=== PATIENT | female | born 2000 | race Caucasian/White ===

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

== ENCOUNTER 2022-01-27 12:17 | Emergency (ER) | payer OTHER, SELFPAY ==
[2022-01-27 12:25] VITALS: BP 105/65; PULSE 93; RESP 16; TEMP 36.9; O2SAT 100
--- NOTE | 2022-01-27 12:39 | ED.URI ---
HPI - URI/Sore Throat General Chief Complaint: Upper Respiratory Infection Stated Complaint: uri Time Seen by Provider: 01/27/22 12:25 Source: patient Mode of arrival: ambulatory Limitations: no limitations History of Present Illness HPI Narrative: Annika is a 21-year-old female patient presenting to the clinic today with complaints of cough, nasal congestion, body aches, feeling feverish, and chills. She reports that she has had the symptoms for 2-3 days. States that she has had exposure to RSV and is concerned that she may have RC. MD elicited complaint: sore throat and nasal congestion Related Data Home Medications Medication Instructions Recorded Confirmed aripiprazole 5 mg tablet 5 mg PO DAILY 01/27/22 01/27/22 buspirone 10 mg tablet 10 mg PO DAILY 01/27/22 01/27/22 Allergies Allergy/AdvReac Type Severity Reaction Status Date / Time No Known Allergies Allergy Verified 01/27/22 12:38 Review of Systems Review of Systems: Pertinent positives per HPI. Patient denies any rash, headache, visual changes, dizziness,shortness of breath, chest pain, palpitations, nausea, vomiting, diarrhea, constipation, abdominal pain, or any urinary issues. [facility] Past Medical History Medical History Depression Social History Social History Smoking status: Never smoker Alcohol intake: never Substance use: never Gender identity (if verbalized by the patient): Female Comments At the time of my signature, I reviewed and agree with the nursing past medical, surgical, social, and family history. There is no relevant family history pertinent to the patient complaint. Exam Narrative: General: Well-developed, well nourished, in no apparent distress Head: Normocephalic, atraumatic Eyes: Pupils equally round and reactive to light bilaterally, EOM intact, sclera and conjunctive clear, no discharge, lids normal Ears: TMs intact and dull, ear canals clear, no drainage, grossly hearing normal. Nose: Nares patent, clear nasal discharge, no inflammation, no sinus tenderness. Mouth: Oral pharynx without lesions or masses, good dentition, MMM. Postnasal drip Neck: Supple, trachea midline, no enlargement of anterior or posterior cervical nodes, no thyroid masses or goiter palpable. Cardio: Regular rate and rhythm, s1 and s2 normal, no murmur appreciated. Resp: Clear to auscultation bilaterally, no rhonchi, rales, wheezing or rubs Course Course Emergency Course: Portions of this record may have been created with voice recognition software. Level of Care: Express Care Visit Vital Signs Vital signs: Vital Signs Temperature 36.9 C 01/27/22 12:25 Pulse Rate 93 01/27/22 12:25 Respiratory Rate 16 01/27/22 12:25 Blood Pressure 105/65 01/27/22 12:25 Pulse Oximetry 100 01/27/22 12:25 Oxygen Delivery Room Air 01/27/22 12:25 Temperature 36.9 C 01/27/22 12:25 Pulse Rate 93 01/27/22 12:25 Respiratory Rate 16 01/27/22 12:25 Blood Pressure 105/65 01/27/22 12:25 Pulse Oximetry 100 01/27/22 12:25 Oxygen Delivery Room Air 01/27/22 12:25 Vital signs reviewed MDM - URI/Sore Throat MDM Narrative Medical decision making narrative: At the time of visit patient is resting comfortably on exam table. Influenza test was negative in the clinic today. I suspect the patient has an upper respiratory infection, eustachian tube dysfunction, otalgia, and a viral syndrome. I will send in a prescription for some prednisone to help with eustachian tube dysfunction and that and nasal congestion. Supportive measures were discussed with the patient she voiced understanding of discharge instructions and agrees to treatment plan. Differential Diagnosis Differential diagnosis: Likely upper respiratory infection, otitis media, sinusitis, viral infection, bronchitis, influenza, pharyngitis and
== END 2022-01-27 12:48 | disposition home or self-care (01) ==
PROVIDERS: Emergency Provider Nurse Practitioner Family
DX: B34.9 Viral infection, unspecified (principal); J06.9 Acute upper respiratory infection, unspecified; H69.81 Other specified disorders of Eustachian tube, right ear; H92.01 Otalgia, right ear; F32.A Depression, unspecified
CPT/HCPCS: 99213; G0463

== ENCOUNTER 2022-02-17 12:22 | Emergency (ER) | payer OTHER, SELFPAY ==
[2022-02-17 12:32] VITALS: BP 113/67; PULSE 85; RESP 18; TEMP 37.4; O2SAT 100
--- NOTE | 2022-02-17 12:44 | ED.SKABFB ---
HPI - Skin/Abscess/Foreign Bdy General Chief complaint: Skin/Abscess/Foreign Body Stated complaint: Right Hand Pain Time Seen by Provider: 02/17/22 12:40 Source: patient and RN notes reviewed Mode of arrival: ambulatory Limitations: no limitations History of Present Illness HPI narrative: 21-year-old female presents concern for was splinter under her fingernail. Reports she was picking up her favorite off of 0 would some floor and scraped her fingernail on the wood. Reports she was able to remove some of the splinter, she cut her finger nail down but there still which she cannot take out. complaint: foreign body Related Data Home Medications Medication Instructions Recorded Confirmed aripiprazole 5 mg tablet 5 mg PO DAILY 01/27/22 02/17/22 buspirone 10 mg tablet 10 mg PO DAILY 01/27/22 02/17/22 levonorgestrel 0.15 mg-ethinyl 1 tablet PO DAILY 02/17/22 02/17/22 estradiol 0.03 mg tablet (Altavera (28)) Allergies Allergy/AdvReac Type Severity Reaction Status Date / Time No Known Allergies Allergy Verified 02/17/22 12:25 Review of Systems Review of Systems: CONSTITUTIONAL: Denies malaise, chills, sweats, or fever. SKIN: Reports wood splinter under the nail of the 3rd digit of the right hand surrounding erythema, edema, drainage MUSCULOSKELETAL: Denies muscle skeletal pain All systems reviewed & are unremarkable except as noted in HPI and below PMFSH Past Medical History Medical History Depression Social History Social History Smoking status: Never smoker Alcohol intake: never Substance use: never Gender identity (if verbalized by the patient): Female Comments At time of signature, agree with nursing past medical, surgical, social and family history. There is no relevant family history pertinent to the presenting complaint Exam Narrative: GENERAL: Well-appearing, well-nourished, and in no acute distress. HEAD: Normocephalic, atraumatic. EYES: PERRLA, conjunctivae clear ENT: Mucous membranes moist. NECK: Supple. No lymphadenopathy CHEST: Clear to auscultation. No respiratory distress. HEART: Regular rate and rhythm. SKIN: Warm, dry. Dark colored foreign body noted under the nail bed of the 3rd digit of the right hand without erythema, induration or drainage NEURO: Alert and oriented x3. PSYCH: Normal mood and affect Course Course Emergency Course: Patient is aware of diagnosis, understands and agrees to treatment plan. Anticipatory guidance given. Patient agrees to follow-up as directed and is aware of reasons to seek care at the emergency department. Portions of this record may have been created with voice recognition software Level of Care: Express Care Visit Vital Signs Vital signs: Vital Signs Temperature 99.4 F 02/17/22 12:32 Pulse Rate 85 02/17/22 12:32 Respiratory Rate 18 02/17/22 12:32 Blood Pressure 113/67 02/17/22 12:32 Pulse Oximetry 100 02/17/22 12:32 Oxygen Delivery Room Air 02/17/22 12:32 Temperature 99.4 F 02/17/22 12:32 Pulse Rate 85 02/17/22 12:32 Respiratory Rate 18 02/17/22 12:32 Blood Pressure 113/67 02/17/22 12:32 Pulse Oximetry 100 02/17/22 12:32 Oxygen Delivery Room Air 02/17/22 12:32 Reviewed. Procedures Foreign Body Removal Foreign Body #1: Foreign Body Removal Date: 02/17/22 Foreign Body Removal Time: 12:47 Time Out Performed: yes Site: right Description of foreign body: other (Wood) Sedation/Analgesia: none Technique: removal with forceps and incision made to facilitate removal (wedge of fingernail cut away to facilitate removal) Confirmed by:: direct visualization Complications: none Neurovascular: no change from pre-procedure Nerve Block Nerve Block 1: Nerve block date: 02/17/22 Nerve block time: 12:47
== END 2022-02-17 13:08 | disposition home or self-care (01) ==
PROVIDERS: Emergency Provider Nurse Practitioner
DX: S61.242A Puncture wound with foreign body of right middle finger without damage to nail, initial encounter (principal); W45.8XXA Other foreign body or object entering through skin, initial encounter; F32.A Depression, unspecified
CPT/HCPCS: 10120; 99212; G0463

== ENCOUNTER 2022-04-09 19:03 | Emergency (ER) | payer OTHER, SELFPAY ==
--- NOTE | ~2022-04-09 | XR_ITS ---
EXAM: XR thoracic spine 2V DATE: 04/09/2022 19:33 HISTORY: UPPER BACK PAIN, NO INJURY . COMPARISON: 08/31/2018. FINDINGS: Vertebral body alignment intact. Mild thoracic scoliosis. Vertebral body heights preserved . No disc space narrowing. No traumatic malalignment or fracture. Visualized lung parenchyma is clear . IMPRESSION: No acute fracture or traumatic malalignment detected in the thoracic spine. Reviewed, dictated and finalized at [facility] [employer] IMPRESSION: No acute fracture or traumatic malalignment detected in the thoraci c spine.
[2022-04-09 19:11] VITALS: BP 128/58; PULSE 99; RESP 16; TEMP 37.4; O2SAT 100
--- NOTE | 2022-04-09 19:48 | ED.GENADULT ---
HPI - General Adult General Chief complaint: Back Pain/Injury Stated complaint: upper back pain Source: patient Mode of arrival: ambulatory Limitations: no limitations History of Present Illness HPI narrative: Patient presents for evaluation Of back pain since yesterday. She woke from sleep with her symptoms. She thought that her symptoms were related to position in which she slept. She now reports a constant dull ache in the affected area. She states pain does radiate from her thoracic spine about bilaterally. Certain movements make her pain worse. 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 She did take some Tylenol and ibuprofen yesterday which seemed to help. No history of similar symptoms. Pain also does radiate up into her neck. Reports a frontal headache that she describes as a migraine. No fevers or chills. No nuchal rigidity. Related Data Home Medications Medication Instructions Recorded Confirmed aripiprazole 5 mg tablet 5 mg PO DAILY 01/27/22 02/17/22 buspirone 10 mg tablet 10 mg PO DAILY 01/27/22 02/17/22 levonorgestrel 0.15 mg-ethinyl 1 tablet PO DAILY 02/17/22 02/17/22 estradiol 0.03 mg tablet (Altavera (28)) duloxetine 60 mg capsule,delayed 60 mg PO DAILY 04/09/22 04/09/22 release Allergies Allergy/AdvReac Type Severity Reaction Status Date / Time No Known Allergies Allergy Verified 04/09/22 19:45 Review of Systems Review of Systems: CONSTITUTIONAL: Denies fever, chills, or sweats. EYES: Denies visual changes, redness, or discharge. ENT: Denies rhinorrhea, congestion, sore throat, or otalgia. CARDIOVASCULAR: Denies chest pain, palpitations, or edema. RESPIRATORY: Denies cough or dyspnea. GASTROINTESTINAL: Denies abdominal pain, nausea, vomiting, or diarrhea. GENITOURINARY: Denies dysuria or hematuria. SKIN: Denies rash or itching. MUSCULOSKELETAL: reports back pain with radiation into the neck NEUROLOGIC: Reports headache. Denies numbness, dizziness, or weakness. PSYCHIATRIC: Denies anxiety or depression. [facility] Past Medical History Medical History Depression Surgical History Surgical History No pertinent past surgical history Family History Family History (Updated 04/09/22 @ 20:00 by Peng Murphy, [facility], ) Mother Family history non-contributory Social History Social History Smoking status: Never smoker Alcohol intake: never Substance use: never Gender identity (if verbalized by the patient): Female Exam Narrative: GENERAL: Well-appearing, well-nourished, and in no acute distress. HEAD: Normocephalic, atraumatic. EYES: PERRLA and EOMI. ENT: Nares clear, no rhinorrhea or epistaxis. Mucous membranes moist. Oropharynx without tonsillar hypertrophy exudate or other lesions. Bilateral TMs pearly lazcano nonbulging NECK: Supple. No adenopathy or masses. No carotid bruits or JVD. No tenderness in midline or paraspinous muscles of the cervical spine. CHEST: Clear to auscultation. No respiratory distress. No wheezes rales or rhonchi HEART: Regular rate and rhythm. No murmur heard. Normal peripheral pulses. ABDOMEN: Soft, nontender, nondistended, normal active bowel sounds. EXTREMITIES: Normal range of motion. No edema. BACK: no tenderness in midline or paraspinous muscles of the thoracic spine. SKIN: Warm, dry, no rash. NEURO: No focal deficits. Alert and oriented x3. negative Brudzinski sign. Negative Kernig sign. PSYCH: Normal mood and affect. Course Course Emergency Course: This is a 21-year-old female who presented for evaluation of back pain. She has some scoliosis noted under thoracic spine film. Her exam is consistent with muscle spasm. Will discharge with ibuprofen and Flexeril. Increase hydr
== END 2022-04-09 19:51 | disposition home or self-care (01) ==
PROVIDERS: Emergency Provider Nurse Practitioner
DX: M41.9 Scoliosis, unspecified (principal); M62.830 Muscle spasm of back; F32.A Depression, unspecified
CPT/HCPCS: 72070; 99213; G0463

== ENCOUNTER 2022-12-24 15:11 | Emergency (ER) | payer OTHER, SELFPAY ==
--- NOTE | 2022-12-24 15:19 | ED.BACK ---
HPI - Back Pain/Injury General Chief Complaint: Back Pain/Injury Stated Complaint: Middle/Lower Back Pain Source: patient and RN notes reviewed History of Present Illness HPI Narrative: 22 yo F presents to urgent care with complaints of right back pain x 2 weeks. Pt states she first noticed this pain when she was attempting to pop her back by rotating her torso to the right while sitting in a chair. Pt states every since then, she is unable to rotate her torso very far on the right due to the pain. Reports increased pain when she takes a deep breath or cough. Denies any fevers, chills, chest pain, SOB, vomiting, numbness, tingling, dysuria, saddle anesthesia, or incontinence of urine or stool. Related Data Home Medications Medication Instructions Recorded Confirmed aripiprazole 5 mg tablet 5 mg PO DAILY 01/27/22 12/24/22 buspirone 10 mg tablet 10 mg PO DAILY 01/27/22 12/24/22 levonorgestrel 0.15 mg-ethinyl 1 tablet PO DAILY 02/17/22 12/24/22 estradiol 0.03 mg tablet (Altavera (28)) duloxetine 60 mg capsule,delayed 60 mg PO DAILY 04/09/22 12/24/22 release Allergies Allergy/AdvReac Type Severity Reaction Status Date / Time No Known Allergies Allergy Verified 12/24/22 15:12 Review of Systems Review of Systems: CONSTITUTIONAL: Denies fever, chills, or sweats. EYES: Denies visual changes, redness, or discharge. ENT: Denies otalgia and sore throat CARDIOVASCULAR: Denies chest pain, palpitations, or edema. RESPIRATORY: Denies cough or dyspnea. GASTROINTESTINAL: Denies abdominal pain, nausea, vomiting, or diarrhea. GENITOURINARY: Denies dysuria or hematuria. SKIN: Denies rash or itching. MUSCULOSKELETAL: right back pain NEUROLOGIC: Denies headache, numbness, or weakness. Pertinent positives per HPI. [facility] Past Medical History Medical History Depression Surgical History Surgical History No pertinent past surgical history Family History Family History (Updated 04/09/22 @ 20:00 by Peng Murphy, [employer], ) Mother Family history non-contributory Social History Social History Smoking status: Never smoker Alcohol intake: never Substance use: never Gender identity (if verbalized by the patient): Female Comments At the time of my signature, I reviewed and agree with the nursing past medical, surgical, social, and family history. There is no relevant family history pertinent to the patient complaint. Exam Narrative: GENERAL: This is a well-nourished, well-developed patient, in no apparent distress. HEAD: normocephalic, atraumatic. EYES: Sclera clear/white. Vision is grossly intact. EARS: External ears normal, auditory canals clear and without drainage. Hearing grossly intact. NOSE: External nose normal with no obvious nasal discharge, nares without redness, no rhinorrhea. CARDIOVASCULAR: Regular rate and rhythm without murmurs, gallops, or rubs. RESPIRATORY: Clear to auscultation. Breath sounds equal bilaterally. No wheezes, rales, or rhonchi. GASTROINTESTINAL: Abdomen soft, non-tender, nondistended. Bowel sounds are active. No hepato-splenomegaly, or palpable masses. No guarding. SKIN: warm, intact with no suspicious lesions or rash, good texture and turgor. NEURO: awake, alert, and oriented to person, place and time. There were no obvious focal neurologic abnormalities. EXTREMITIES: No clubbing, cyanosis, or edema. No joint tenderness, effusion, or edema noted. BACK: mild tenderness to right thoracic back muscles. limited ROM with rotating torso. Course Course Level of Care: Express Care Visit Vital Signs Vital signs: Vital Signs Temperature 99.1 F 12/24/22 15:20 Pulse Rate 96 12/24/22 15:20 Respiratory Rate 16 12/24/22 15:20 Blood Pressure 125/72 12/24/22 15:20 Pulse Oximetry
[2022-12-24 15:20] VITALS: BP 125/72; PULSE 96; RESP 16; TEMP 37.3; O2SAT 100
== END 2022-12-24 15:34 | disposition home or self-care (01) ==
PROVIDERS: Emergency Provider Nurse Practitioner Family
DX: S39.012A Strain of muscle, fascia and tendon of lower back, initial encounter (principal); X50.0XXA Overexertion from strenuous movement or load, initial encounter; F32.A Depression, unspecified
CPT/HCPCS: 99213; G0463

== ENCOUNTER 2023-02-05 15:57 | Emergency (ER) | payer OTHER, SELFPAY ==
[2023-02-05 16:13] VITALS: BP 120/62; PULSE 112; RESP 16; TEMP 37.7; O2SAT 99
[2023-02-05] MEDS: ONDANSETRON HCL ODT 4 MG TABLET PO (16:40)
--- NOTE | 2023-02-05 17:35 | ED.GENADULT ---
HPI - General Adult General Chief complaint: Nausea/Vomiting/Diarrhea Stated complaint: vomiting,diarrhea,stomach pains Source: patient Mode of arrival: ambulatory Limitations: no limitations History of Present Illness HPI narrative: Patient presents for evaluation of nausea, vomiting, and diarrhea. Symptom onset this morning. she has some associated abdominal cramping. No fever, chills, or hematemesis. She had some respiratory symptoms last week that have since resolved. No recent sick contacts to her knowledge. She does not smoke. No new foods. No recent antibiotics. Related Data Home Medications Medication Instructions Recorded Confirmed aripiprazole 5 mg tablet 5 mg PO DAILY 01/27/22 12/24/22 buspirone 10 mg tablet 10 mg PO DAILY 01/27/22 12/24/22 levonorgestrel 0.15 mg-ethinyl 1 tablet PO DAILY 02/17/22 12/24/22 estradiol 0.03 mg tablet (Altavera (28)) duloxetine 60 mg capsule,delayed 60 mg PO DAILY 04/09/22 12/24/22 release Allergies Allergy/AdvReac Type Severity Reaction Status Date / Time No Known Allergies Allergy Verified 02/05/23 16:15 Review of Systems Review of Systems: CONSTITUTIONAL: Denies fever, chills, or sweats. EYES: Denies visual changes, redness, or discharge. ENT: Denies rhinorrhea, congestion, sore throat, or otalgia. CARDIOVASCULAR: Denies chest pain, palpitations, or edema. RESPIRATORY: Denies cough or dyspnea. GASTROINTESTINAL: Reports abdominal cramping, nausea, vomiting and diarrhea. GENITOURINARY: Denies dysuria or hematuria. SKIN: Denies rash or itching. MUSCULOSKELETAL: Denies back pain, joint pain, or myalgia. NEUROLOGIC: Denies headache, numbness, dizziness, or weakness. PSYCHIATRIC: Denies anxiety or depression. [facility] Past Medical History Medical History Depression Diarrhea Surgical History Surgical History No pertinent past surgical history Family History Family History Mother Family history non-contributory Social History Social History (Updated 02/05/23 @ 17:38 by Peng Murphy, [facility], ) Smoking status: Never smoker Alcohol intake: never Substance use: never Living arrangements: with family Gender identity (if verbalized by the patient): Female Spiritual care concerns: No Exam Narrative: GENERAL: Well-appearing, well-nourished, and in no acute distress. HEAD: Normocephalic, atraumatic. EYES: PERRLA and EOMI. ENT: Nares clear, no rhinorrhea or epistaxis. Mucous membranes moist. Oropharynx without tonsillar hypertrophy exudate or other lesions. Bilateral TMs pearly lazcano nonbulging NECK: Supple. No adenopathy or masses. No carotid bruits or JVD CHEST: Clear to auscultation. No respiratory distress. No wheezes rales or rhonchi HEART: Regular rate and rhythm. No murmur heard. Normal peripheral pulses. ABDOMEN: Soft, nontender, nondistended, normal active bowel sounds. EXTREMITIES: Normal range of motion. No edema. SKIN: Warm, dry, no rash. NEURO: No focal deficits. Alert and oriented x3. PSYCH: Normal mood and affect. Course Course Emergency Course: This is a 22-year-old female who presented for evaluation of nausea, vomiting, diarrhea. Given zofran for nausea with improvement in her symptoms thereafter. Influenza A positive. Will tx with tamiflu, zofran and lomotil. increase hydration. Follow up with primary provider. Go to the ER for worsening symptoms. Patient in agreement with of care. Level of Care: Express Care Visit Vital Signs Vital signs: Vital Signs Temperature 37.7 C H 02/05/23 16:13 Pulse Rate 112 H 02/05/23 16:13 Respiratory Rate 16 02/05/23 16:13 Blood Pressure 120/62 02/05/23 16:13 Pulse Oximetry 99 02/05/23 16:13 Oxygen Delivery Room Air 02/05/23 16:13 Temperature 37.7 C H 01/18
== END 2023-02-05 17:36 | disposition home or self-care (01) ==
PROVIDERS: Emergency Provider Nurse Practitioner
DX: J10.1 Influenza due to other identified influenza virus with other respiratory manifestations (principal); F32.A Depression, unspecified
CPT/HCPCS: 87804; 99213; A9270; G0463

== ENCOUNTER 2023-02-21 09:32 | Emergency (ER) | payer OTHER, SELFPAY ==
--- NOTE | ~2023-02-21 | XR_ITS ---
EXAMINATION: XR chest 1V portable 02/21/2023 11:47 INDICATION: Shortness of breath. Cough. PROCEDURE: AP portable chest COMPARISON: No prior studies for comparison. FINDINGS: The lungs are clear. The cardiomediastinal silhouette is within normal limits. There are no pleural effusions. There is no pneumothorax suspected. IMPRESSION: 1: NO ACUTE CARDIOPULMONARY DISEASE. Reviewed, dictated and finalized at location L. 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
--- NOTE | 2023-02-21 09:34 | ECG_ITS ---
Measurements Intervals [place] Rate: 106 P: 60 [place]: 130 QRS: 95 QRSD: 87 T: 17 QT: 329 QTc: 438 Interpretive Statements SINUS TACHYCARDIA BORDERLINE RIGHT AXIS DEVIATION [QRS AXIS > 90] ABNORMAL RHYTHM ECG NO PREVIOUS ECG AVAILABLE FOR COMPARISON Electronically Signed On 02-21-2023 13:34:19 [employer] FRAME [employer] by Mikayla Sultana M.D.
[2023-02-21 10:04] VITALS: BP 126/72; PULSE 108; RESP 17; TEMP 36.9; O2SAT 100
--- NOTE | 2023-02-21 11:44 | ED.GENADULT ---
HPI - General Adult General Chief complaint: Shortness of Breath/Dyspnea Stated complaint: UPPER RESP COUGHING Time Seen by Provider: 02/21/23 11:04 History of Present Illness HPI narrative: 22-year-old female presenting to the emergency department for evaluation of sore throat cough congestion and intermittent chest pain. Patient reports approximately 2 weeks ago she was diagnosed with influenza a and reports over the last 5 days she has had worsening sore throat nasal congestion and chest pain. Related Data Home Medications Medication Instructions Recorded Confirmed aripiprazole 5 mg tablet 5 mg PO DAILY 01/27/22 12/24/22 buspirone 10 mg tablet 10 mg PO DAILY 01/27/22 12/24/22 levonorgestrel 0.15 mg-ethinyl 1 tablet PO DAILY 02/17/22 12/24/22 estradiol 0.03 mg tablet (Altavera (28)) duloxetine 60 mg capsule,delayed 60 mg PO DAILY 04/09/22 12/24/22 release Allergies Allergy/AdvReac Type Severity Reaction Status Date / Time No Known Allergies Allergy Verified 02/21/23 11:45 Review of Systems Review of Systems: All systems reviewed & are unremarkable except as noted in HPI and below PMFSH Past Medical History Medical History Depression Diarrhea Surgical History Surgical History No pertinent past surgical history Family History Family History Mother Family history non-contributory Social History Social History (Updated 02/05/23 @ 17:38 by ROHIT Aquino, ) Smoking status: Never smoker Alcohol intake: never Substance use: never Living arrangements: with family Gender identity (if verbalized by the patient): Female Spiritual care concerns: No Exam Narrative: APPEARANCE: Well appearing, no pain, no distress, well-nourished. HEAD: normocephalic, atraumatic. EYES: PERRLA/EOMI, conjunctivae clear. NOSE: Normal no drainage EARS:TMS clear with good light reflex. THROAT: Pharynx clear, no exudate. NECK: Supple. No adenopathy, no masses. RESPIRATORY: Airway patent, respirations nonlabored. Clear to auscultation bilaterally, no rales, rhonchi, wheezing. CARDIOVASCULAR: Regular rate and rhythm without murmurs rubs or gallops. ABDOMINAL: Soft, nontender, nondistended, normal bowel sounds MUSCULOSKELETAL: Moves all extremities. Strength/ROM intact, No edema, No calf tenderness. NEURO: Alert. Cranial nerves II through XII intact. grossly intact SKIN: Warm, dry. Normal Color Course Vital Signs Vital signs: Vital Signs Temperature 98.4 F 02/21/23 10:04 Pulse Rate 108 H 02/21/23 10:04 Respiratory Rate 17 02/21/23 10:04 Blood Pressure 126/72 02/21/23 10:04 Pulse Oximetry 100 02/21/23 10:04 Oxygen Delivery Room Air 02/21/23 10:04 Temperature 98.4 F 02/21/23 10:04 Pulse Rate 86 02/21/23 13:02 Respiratory Rate 18 02/21/23 13:02 Blood Pressure 120/70 02/21/23 13:02 Pulse Oximetry 99 02/21/23 13:02 Oxygen Delivery Room Air 02/21/23 12:08 Medical Decision Making Differential Diagnosis Differential Diagnosis: influenza a, COVID, pneumonia Vital Signs Vital Signs: Vital Signs Temperature 98.4 F 02/21/23 10:04 Pulse Rate 108 H 02/21/23 10:04 Respiratory Rate 17 02/21/23 10:04 Blood Pressure 126/72 02/21/23 10:04 Pulse Oximetry 100 02/21/23 10:04 Oxygen Delivery Room Air 02/21/23 10:04 Temperature 98.4 F 02/21/23 10:04 Pulse Rate 86 02/21/23 13:02 Respiratory Rate 18 02/21/23 13:02 Blood Pressure 120/70 02/21/23 13:02 Pulse Oximetry 99 02/21/23 13:02 Oxygen Delivery Room Air 02/21/23 12:08 Lab Data Lab results reviewed: Yes I reviewed the patient's lab results. Labs: Lab Results 02/21/23 02/21/23 Range/Units 11:31 11:57 Influenza A (RT-PCR) Negative (Negative) Influenza B
[2023-02-21] MEDS: ONDANSETRON HCL ODT 4 MG TABLET PO (11:46)
[2023-02-21 12:14] LABS: Influenza A QL RT-PCR Negative (Negative); Influenza B QL RT-PCR Negative (Negative); RSV RNA, RT-PCR Negative (Negative); SARS-CoV-2 RNA PCR Negative (Negative)
[2023-02-21 12:35] LABS: Strep Group A RT-PCR NOT DETECTED (Negative)
[2023-02-21 13:02] VITALS: BP 120/70; PULSE 86; RESP 18; O2SAT 99
== END 2023-02-21 13:06 | disposition home or self-care (01) ==
PROVIDERS: Emergency Provider Emergency Medicine
DX: J18.9 Pneumonia, unspecified organism (principal); Z20.822 Contact with and (suspected) exposure to COVID-19; F32.A Depression, unspecified
CPT/HCPCS: 71045; 87637; 87651; 93005; 99283; A9270

== ENCOUNTER 2023-06-07 15:43 | Emergency (ER) | payer OTHER, SELFPAY ==
[2023-06-07] VITALS (12 sets, daily range): BP systolic 113–151; BP diastolic 73–85; PULSE 84–157; RESP 9–22; TEMP 36.6; O2SAT 100
--- NOTE | ~2023-06-07 | XR_ITS ---
XR chest 1V portable DATE: 06/07/2023 16:08 INDICATION: Chest pain, tachycardia TECHNIQUE: Portable upright AP chest on 06/07/19992013 1602 hours COMPARISON: 02/21/2023 portable AP chest FINDINGS: Normal heart size. No hilar or mediastinal enlargement. No pulmonary infiltrate or consolid ation, pleural effusion or pulmonary vascular congestion or pneumothorax is detected. Included skelet al structures are unremarkable. IMPRESSION: No active cardiopulmonary disease Reviewed, dictated and finalized at location B.
--- NOTE | 2023-06-07 15:50 | ECG_ITS ---
Measurements Intervals [place] Rate: 161 P: 56 [place]: 106 QRS: 94 QRSD: 89 T: 43 QT: 296 QTc: 485 Interpretive Statements SINUS TACHYCARDIA WITH SHORT [place] INTERVAL RIGHT AXIS DEVIATION MINIMAL Q WAVES- INFERIOR LEADS NONSPECIFIC ST & T-WAVE ABNORMALITY- ANT/INF LEADS ABNORMAL ECG COMPARED TO ECG 02/21/2023 09:40:21 SINUS TACHYCARDIA NOW PRESENT Electronically Signed On 06-07-2023 16:04:14 CDT by Aleksandr Lopez D.O.
[2023-06-07 16:03] LABS: Basophils Absolute Auto 0.1 K/mm3 (0.0-0.1); Basophils Percent Auto 0.7 % (0.2-1.2); Eosinophils Absolute Auto 0.1 K/mm3 (0-0.3); Eosinophils Percent Auto 1.7 % (0-4.4); Hematocrit 39.1 % (37.0-47.0); Immature Granulocyte Absolute 0.01 K/mm3 (0.00-0.031); Immature Granulocyte Percent A 0.1 % (0-0.5); Lymphocytes Absolute Auto 2.85 K/mm3 (0.9-3.2); Lymphocytes Percent Auto 35.3 % (18.3-44.2); Mean Corpuscular HGB Conc 33.2 g/dl (32-36); Mean Corpuscular Volume 90.1 fl (80-100); Mean Platelet Volume 9.9 fl (7.4-10.4); Monocytes Absolute Auto 0.6 K/mm3 (0.1-0.6); Monocytes Percent Auto 7.2 % (2.6-8.5); Neutrophils Absolute Auto 4.4 K/mm3 (1.3-6.7); Platelet Count Result 290 k/mm3 (150-375); Red Blood Count 4.34 M/mm3 (4.2-5.4); Red Cell Distribution Width 13.1 % (11.5-14.5); White Blood Count 8.1 K/mm3 (4.5-10.0)
[2023-06-07] MEDS: SODIUM CHLORIDE 0.9% IV 1,000 ML 1000 ML (16:05)
--- NOTE | 2023-06-07 16:05 | ED.ARRPALP ---
HPI - Arrhythmia/Palpitations General Chief Complaint: Arrhythmia/Palpitations Stated Complaint: heart racing Time Seen by Provider: 06/07/23 15:54 History of Present Illness HPI narrative: 22-year-old female presenting to the emergency department for evaluation of rapid heart rate. Patient states at approximately 10:00 a.m. this morning she had onset rapid heart rate. Patient states she does have intermittent rapid heart rate but has no prior diagnosis. 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 Related Data Home Medications Medication Instructions Recorded Confirmed aripiprazole 5 mg tablet 5 mg PO DAILY 01/27/22 12/24/22 buspirone 10 mg tablet 10 mg PO DAILY 01/27/22 12/24/22 levonorgestrel 0.15 mg-ethinyl 1 tablet PO DAILY 02/17/22 12/24/22 estradiol 0.03 mg tablet (Altavera (28)) duloxetine 60 mg capsule,delayed 60 mg PO DAILY 04/09/22 12/24/22 release Allergies Allergy/AdvReac Type Severity Reaction Status Date / Time No Known Allergies Allergy Verified 06/07/23 16:16 Review of Systems Review of Systems: All systems reviewed & are unremarkable except as noted in HPI and below PMFSH Past Medical History Medical History Depression Diarrhea Surgical History Surgical History No pertinent past surgical history Family History Family History Mother Family history non-contributory Social History Social History (Updated 02/05/23 @ 17:38 by ROHIT Aquino, ) Smoking status: Never smoker Alcohol intake: never Substance use: never Living arrangements: with family Gender identity (if verbalized by the patient): Female Spiritual care concerns: No Exam Narrative: APPEARANCE: Well appearing, no pain, no distress, well-nourished. HEAD: normocephalic, atraumatic. EYES: PERRLA/EOMI, conjunctivae clear. NOSE: Normal no drainage EARS:TMS clear with good light reflex. THROAT: Pharynx clear, no exudate. NECK: Supple. No adenopathy, no masses. RESPIRATORY: Airway patent, respirations nonlabored. Clear to auscultation bilaterally, no rales, rhonchi, wheezing. CARDIOVASCULAR: Sinus tachycardia ABDOMINAL: Soft, nontender, nondistended, normal bowel sounds MUSCULOSKELETAL: Moves all extremities. Strength/ROM intact, No edema, No calf tenderness. NEURO: Alert. Cranial nerves II through XII intact. Good gait. Good coordination SKIN: Warm, dry. Normal Color Course Course Emergency Course: patient's heart rate improved with rehydration and treatment with her home bupropion Vital Signs Vital signs: Vital Signs Temperature 98 F 06/07/23 15:50 Pulse Rate 157 H 06/07/23 15:50 Respiratory Rate 16 06/07/23 15:50 Blood Pressure 151/81 H 06/07/23 15:50 Pulse Oximetry 100 06/07/23 15:50 Oxygen Delivery Room Air 06/07/23 15:50 Temperature 98 F 06/07/23 15:50 Pulse Rate 84 06/07/23 17:45 Respiratory Rate 16 06/07/23 17:45 Blood Pressure 115/75 06/07/23 17:40 Pulse Oximetry 100 06/07/23 17:45 Oxygen Delivery Room Air 06/07/23 16:02 MDM - Arrhythmia/Palpitations MDM Narrative Medical decision making narrative: 22-year-old female present to the emergency department for evaluation of rapid heart rate. Upon arrival to the emergency department patient's heart rate was in the 160s. This did improve with rest. Patient was not able to Valsalva or cough on of the rhythm. Patient has no prior history SVT. Patient's heart rate did significantly improve with rehydration. Patient was also treated with IV Ativan and her p.o. buspirone. Prior to discharge patient's heart rate was in the 80s. Patient had a negative D-dimer. Leydi
[2023-06-07 16:12] LABS: Alanine Aminotransferase 20 U/L (6-35); Albumin Level 4.5 g/dL (3.5-5.1); Alkaline Phosphatase 54 U/L (38-126); Anion Gap 7 mmol/L (8-16); Aspartate Amino Transferase 30 U/L (14-36); Bilirubin,Total 0.5 mg/dL (0.2-1.3); Blood Urea Nitrogen 13 mg/dL (7-17); Calcium 9.1 mg/dL (8.4-10.2); Carbon Dioxide 25 mmol/L (22-30); Chloride 106 mmol/L (98-107); Estimated Glomerular Filt Rate > 60; Glucose 118 mg/dL (65-110); Lipase 107 U/L (23-300); Potassium 3.6 mmol/L (3.4-5.0); Sodium 138 mmol/L (137-145)
[2023-06-07 16:13] LABS: INR 0.9; Prothrombin Time 12.6 Seconds (11.1-14.7)
[2023-06-07 16:14] LABS: Partial Thromboplastin Time 26.2 Seconds (22.3-36.8)
[2023-06-07 16:24] LABS: Troponin I < 0.012 ng/mL (0.000-0.034)
[2023-06-07 16:26] LABS: D Dimer < 0.27 ug/mL (<0.48)
[2023-06-07] MEDS: ACETAMINOPHEN 500 MG TABLET 1000 MG PO (16:33)
[2023-06-07] MEDS: busPIRone HCL 5 MG TABLET PO (16:34)
[2023-06-07] MEDS: SODIUM CHLORIDE 0.9% IV 1,000 ML 999 ML IV CONT (16:35)
[2023-06-07] MEDS: LORazepam INJ (*CRX) 2 MG/ML VIAL 0.5 MG IV PUSH (16:36)
== END 2023-06-07 18:21 | disposition home or self-care (01) ==
PROVIDERS: Emergency Provider Emergency Medicine
DX: R00.2 Palpitations (principal); F41.9 Anxiety disorder, unspecified; F32.A Depression, unspecified; R00.0 Tachycardia, unspecified; R94.31 Abnormal electrocardiogram [ECG] [EKG]
CPT/HCPCS: 36415; 71045; 80053; 83690; 84484; 85025; 85380; 85610; 85730; 93005; 96361; 96374; 99284; A9270; J2060; J7030

== ENCOUNTER 2023-07-03 11:23 | Emergency (ER) | payer OTHER, SELFPAY ==
--- NOTE | ~2023-07-03 | XR_ITS ---
EXAMINATION: XR chest 2V DATE: 07/03/2023 12:47 INDICATION: Stabbing pain under the left breast. TECHNIQUE: PA and lateral views of the chest were obtained. COMPARISON: Chest radiograph dated 06/07/2023 FINDINGS: The lungs remain clear with no focal airspace opacities, pulmonary edema, pleural effusion or pneumot horax. The cardiomediastinal silhouette is normal. 11 degree midthoracic dextroscoliosis. IMPRESSION: 1. No acute cardiopulmonary disease. Reviewed, dictated and finalized at location A.
[2023-07-03 11:59] VITALS: BP 130/68; PULSE 130; RESP 18; TEMP 37; O2SAT 100
--- NOTE | 2023-07-03 12:00 | ECG_ITS ---
SEE SCANNED COPY FOR CONFIRMED REPORT MTDD
--- NOTE | 2023-07-03 13:46 | ED.CHESTPAIN ---
HPI - Chest Pain General Chief Complaint: Chest Pain Stated Complaint: sharp chest pain Time Seen by Provider: 07/03/23 13:47 Focused HPI: Patient is a 23 y/o female who presents to the ED with c/o CP. Patient reports she developed left sided chest pain under her left breast around 1030 am this morning. She reported having sharp stabbing pains every few minutes. States pain feels improved currently. She did feel short of breath and lightheaded with the pain. Pain was worse with deep breathing. Patient denies any recent cough or cold symptoms. Denies lower extremity pain or swelling. Denies fevers. Denies abdominal pain. Patient reports recent ED visit for palpitations, diagnosed with anxiety, states she is scheduled to see cardiology in September. GENERAL: Well-appearing, well-nourished, and in no acute distress. HEAD: Normocephalic, atraumatic. CHEST: Clear to auscultation. ?No respiratory distress. HEART: Regular rate and rhythm.? MSK: No chest wall tenderness to palpation. No lower extremity edema. NEURO: ?Alert and oriented x3. Patient screened in triage and initial orders placed.? ?Additional care and disposition to be based upon?diagnostic testing and treatment. Source: patient Mode of arrival: ambulatory Limitations: no limitations Related Data Home Medications Medication Instructions Recorded Confirmed aripiprazole 5 mg tablet 5 mg PO DAILY 01/27/22 12/24/22 buspirone 10 mg tablet 10 mg PO DAILY 01/27/22 12/24/22 levonorgestrel 0.15 mg-ethinyl 1 tablet PO DAILY 02/17/22 12/24/22 estradiol 0.03 mg tablet (Altavera (28)) duloxetine 60 mg capsule,delayed 60 mg PO DAILY 04/09/22 12/24/22 release Allergies Allergy/AdvReac Type Severity Reaction Status Date / Time No Known Allergies Allergy Verified 06/07/23 16:16 Review of Systems Review of Systems: CONSTITUTIONAL: Denies fever, chills, or sweats. ENT: Denies rhinorrhea, congestion, sore throat. CARDIOVASCULAR: See HPI. RESPIRATORY: See HPI. GASTROINTESTINAL: Denies abdominal pain, nausea, vomiting. NEUROLOGIC: See HPI. All systems reviewed & are unremarkable except as noted in HPI and below PMFSH Past Medical History Medical History (Updated 07/03/23 @ 16:31 by Franny Krishnamurthy PA-C) Anxiety Depression Diarrhea Surgical History Surgical History No pertinent past surgical history Family History Family History Mother Family history non-contributory Social History Social History Smoking status: Never smoker Alcohol intake: never Substance use: never Living arrangements: with family Gender identity (if verbalized by the patient): Female Spiritual care concerns: No Exam Narrative: GENERAL: Well appearing, thin, non-toxic, in no acute distress. HEAD: Normocephalic, atraumatic. RESPIRATORY: Airway patent, respirations nonlabored. Clear to auscultation bilaterally, no rales, rhonchi, wheezing. CARDIOVASCULAR: Borderline tachycardic with regular rhythm without murmurs, rubs, or gallops. MUSCULOSKELETAL: Moves all extremities. No gross deformities. No lower extremity edema. No calf tenderness. No significant chest wall tenderness to palpation. SKIN: Warm, dry, normal color. NEURO: A&O X3. Speech clear. Cranial nerves II-XII grossly intact. Steady gait. No ataxic movements. PSYCHIATRIC: Mildly anxious. Normal interaction. Course Vital Signs Vital signs: Vital Signs Temperature 98.6 F 07/03/23 11:59 Pulse Rate 130 H 07/03/23 11:59 Respiratory Rate 18 07/03/23 11:59 Blood Pressure 130/68 07/03/23 11:59 Pulse Oximetry 100 07/03/23 11:59 Temperature 98.2 F 07/03/23 16:32 Pulse Rate 98 07/03/23 16:32 Respiratory Rate 16 07/03/23 16:32 Blood Pressure 119/65 07/03/23 16:32 Pulse Oximetry 100
[2023-07-03 14:09] LABS: Basophils Absolute Auto 0.1 K/mm3 (0.0-0.1); Basophils Percent Auto 0.7 % (0.2-1.2); Eosinophils Absolute Auto 0.1 K/mm3 (0-0.3); Eosinophils Percent Auto 1.3 % (0-4.4); Hematocrit 39.2 % (37.0-47.0); Hemoglobin 12.7 g/dL (12.0-15.0); Immature Granulocyte Absolute 0.03 K/mm3 (0.00-0.031); Immature Granulocyte Percent A 0.4 % (0-0.5); Lymphocytes Absolute Auto 1.98 K/mm3 (0.9-3.2); Lymphocytes Percent Auto 28.4 % (18.3-44.2); Mean Corpuscular HGB Conc 32.4 g/dl (32-36); Mean Corpuscular Hemoglobin 30.3 pg (26-34); Mean Corpuscular Volume 93.6 fl (80-100); Mean Platelet Volume 10.5 fl (7.4-10.4); Monocytes Absolute Auto 0.5 K/mm3 (0.1-0.6); Monocytes Percent Auto 6.7 % (2.6-8.5); Neutrophils Absolute Auto 4.4 K/mm3 (1.3-6.7); Neutrophils Percent Auto 62.5 % (45.5-73.1); Platelet Count Result 209 k/mm3 (150-375); Red Blood Count 4.19 M/mm3 (4.2-5.4); Red Cell Distribution Width 13.2 % (11.5-14.5)
[2023-07-03 14:14] LABS: INR 0.8; Prothrombin Time 11.9 Seconds (11.1-14.7)
[2023-07-03 14:15] LABS: Partial Thromboplastin Time 24.2 Seconds (22.3-36.8)
[2023-07-03 14:17] LABS: Alanine Aminotransferase 21 U/L (6-35); Albumin Level 4.9 g/dL (3.5-5.1); Alkaline Phosphatase 55 U/L (38-126); Anion Gap 7 mmol/L (4-12); Aspartate Amino Transferase 30 U/L (14-36); Bilirubin,Total 0.7 mg/dL (0.2-1.3); Blood Urea Nitrogen 15 mg/dL (7-17); Calcium 9.3 mg/dL (8.4-10.2); Carbon Dioxide 22 mmol/L (22-30); Chloride 107 mmol/L (98-107); Estimated Glomerular Filt Rate > 60; Glucose 84 mg/dL (65-110); Potassium 3.9 mmol/L (3.4-5.0); Sodium 136 mmol/L (137-145)
[2023-07-03 14:19] LABS: D Dimer < 0.27 ug/mL (<0.48)
[2023-07-03 14:29] LABS: Troponin I < 0.012 ng/mL (0.000-0.034)
--- NOTE | 2023-07-03 15:20 | PC.NURSE ---
pt LWBS, d/t wait time
[2023-07-03 16:32] VITALS: BP 119/65; PULSE 98; RESP 16; TEMP 36.8; O2SAT 100
== END 2023-07-03 16:55 | disposition home or self-care (01) ==
PROVIDERS: Emergency Provider Physician Assistant
DX: R07.89 Other chest pain (principal); F41.9 Anxiety disorder, unspecified; F32.A Depression, unspecified; R00.0 Tachycardia, unspecified; R94.31 Abnormal electrocardiogram [ECG] [EKG]
CPT/HCPCS: 36415; 71046; 80053; 84484; 85025; 85380; 85610; 85730; 93005; 99284

== ENCOUNTER 2023-08-19 10:48 | Emergency (ER) | payer OTHER, SELFPAY ==
[2023-08-19 10:59] VITALS: BP 120/69; PULSE 106; RESP 16; TEMP 37.3; O2SAT 99
--- NOTE | 2023-08-19 11:55 | ED.GENADULT ---
HPI - General Adult General Chief complaint: Upper Respiratory Infection Stated complaint: cough,sore throat Source: patient Mode of arrival: ambulatory Limitations: no limitations History of Present Illness HPI narrative: Patient presents for evaluation of sick symptoms since yesterday. Symptoms include right-sided otalgia with muffled hearing and a popping sensation in the ear. She also reports a sore throat, sinus congestion, thick yellow drainage from the nares, generalized body aches and productive cough of yellow sputum. Her boyfriend's nephew with whom she lives has similar symptoms. She denies any vomiting or diarrhea. She is not taking any medication to assist with her symptoms. Related Data Home Medications Medication Instructions Recorded Confirmed aripiprazole 5 mg tablet 5 mg PO DAILY 01/27/22 12/24/22 buspirone 10 mg tablet 10 mg PO DAILY 01/27/22 12/24/22 levonorgestrel 0.15 mg-ethinyl 1 tablet PO DAILY 02/17/22 12/24/22 estradiol 0.03 mg tablet (Altavera (28)) duloxetine 60 mg capsule,delayed 60 mg PO DAILY 04/09/22 12/24/22 release Allergies Allergy/AdvReac Type Severity Reaction Status Date / Time No Known Allergies Allergy Verified 06/07/23 16:16 Review of Systems Review of Systems: CONSTITUTIONAL: Denies fever, chills, or sweats. EYES: Denies visual changes, redness, or discharge. ENT: Reports sore throat, right-sided otalgia, a popping sensation in the right ear, sinus congestion and thick yellow drainage from the nares. CARDIOVASCULAR: Denies chest pain, palpitations, or edema. RESPIRATORY: Reports productive cough of yellow sputum. Denies shortness of breath. GASTROINTESTINAL: Denies abdominal pain, nausea, vomiting, or diarrhea. GENITOURINARY: Denies dysuria or hematuria. SKIN: Denies rash or itching. MUSCULOSKELETAL: Denies back pain, joint pain, or myalgia. NEUROLOGIC: Denies headache, numbness, dizziness, or weakness. PSYCHIATRIC: Denies anxiety or depression. [facility] Past Medical History Medical History Anxiety Depression Diarrhea Surgical History Surgical History No pertinent past surgical history Family History Family History Mother Family history non-contributory Social History Social History Smoking status: Never smoker Alcohol intake: never Substance use: never Living arrangements: with family Gender identity (if verbalized by the patient): Female Spiritual care concerns: No Exam Narrative: GENERAL: Appears acutely ill but nontoxic. HEAD: Normocephalic, atraumatic. EYES: PERRLA and EOMI. ENT: Nares clear, no rhinorrhea or epistaxis. Mucous membranes moist. Posterior pharyngeal erythema without exudate. Uvula is midline. There is erythema and scarring noted to bilateral tympanic membranes. NECK: Supple. No adenopathy or masses. No carotid bruits or JVD CHEST: Clear to auscultation. No respiratory distress. No wheezes rales or rhonchi HEART: Regular rate and rhythm. No murmur heard. Normal peripheral pulses. ABDOMEN: Soft, nontender, nondistended, normal active bowel sounds. EXTREMITIES: Normal range of motion. No edema. SKIN: Warm, dry, no rash. NEURO: No focal deficits. Alert and oriented x3. PSYCH: Normal mood and affect. Course Course Emergency Course: This is a 23-year-old female who presented for evaluation of sick symptoms. Rapid strep negative. Through shared decision making, opted to proceed with antibiotic therapy. Will discharge with Augmentin. Increase hydration. [id number] agents for symptom management. Follow up primary provider. Go to the ER for worsening symptoms. Patient in agreement with plan of care Level of Care: Express Care Visit Vital Signs
== END 2023-08-19 12:02 | disposition home or self-care (01) ==
PROVIDERS: Emergency Provider Nurse Practitioner
DX: J02.9 Acute pharyngitis, unspecified (principal); F41.9 Anxiety disorder, unspecified; F32.A Depression, unspecified
CPT/HCPCS: 87081; 87880; 99213; G0463

== ENCOUNTER 2024-03-29 22:45 | Emergency (ER) | payer OTHER, SELFPAY ==
[2024-03-29 23:02] VITALS: BP 132/74; PULSE 106; RESP 15; TEMP 36.8; O2SAT 100
--- NOTE | 2024-03-29 23:51 | PC.NURSE ---
Patient comes to the triage desk and states I am going somewhere else to be evaluated. Patient ambulates out of the hospital without incident in no apparent distress.
== END 2024-03-30 01:40 | disposition left against medical advice (07) ==
DX: R10.33 Periumbilical pain (principal)
CPT/HCPCS: 99199